=== PATIENT | female | born 1990 | race Two or more races ===

== ENCOUNTER 2016-07-15 14:06 | Emergency (ER) | payer MEDICAID, OTHER ==
[2016-07-15] MEDS ORDERED: HYDROCODONE/ACETAMINOPHEN 5/325MG TABLET ONE (15:09)
[2016-07-15 15:24] LABS: ABSOLUTE NEUTROPHIL COUNT 3.3 K/mm3 (1.8-7.7); BASO % 0.8 % (0.2-1.0); EOS # 0.1 (0.0-0.5); EOS % 1.9 % (0.9-2.9); HEMATOCRIT 35.5 % (37.0-47.0); HEMOGLOBIN 11.6 gm/l (12.0-16.0); IMM NEUT% 0.2 % (0-1); LYMPH # 1.2 (1.0-4.8); LYMPH % 22.7 % (15-45); MEAN CORPUSCULAR HEMOGLOBIN 28.4 pg (27.0-31.0); MEAN CORPUSCULAR HGB CONC 32.7 g/dl (33.0-37.0); MEAN PLATELET VOLUME 10.4 fl (7.4-10.4); MONO # 0.6 (0.0-0.8); MONO % 11.1 % (4-12); NEUT % 63.3 % (43-75); PLATELET COUNT 301 K/mm3 (130-400); RED CELL DISTRIBUTION WIDTH 13.7 % (11.5-14.5)
--- NOTE | 2016-07-15 15:33 | RAD ---
History: Chest pain and dyspnea with high blood pressure. Comparison: None. Technique: 2 views Findings: The soft tissue and bony structures are unremarkable. The heart size is appropriate. No infiltrate, effusion or pneumothorax is observed. The hilar and mediastinal structures are normal. Impression: 1. A negative 2 view chest
[2016-07-15 15:42] LABS: ALB/GLOB RATIO 1.2 (>1.0); ALBUMIN 3.8 gm/dL (3.5-5.7); CALCIUM 8.9 mg/dL (8.6-10.3)
== END 2016-07-15 17:19 | disposition home or self-care (01) ==
LOC: ED 14:06
DX: K08.89 Other specified disorders of teeth and supporting structures (principal); R07.9 Chest pain, unspecified
CPT/HCPCS: 85025; 80053; 84484; 71020; 99284 ×2; 93005; A9270